=== PATIENT | female | born 1955 | race Caucasian/White ===

== ENCOUNTER 2022-09-04 06:13 | Emergency (ER) | payer OTHER ==
[2022-09-04] MEDS ORDERED: ONDANSETRON 4 MG/2 ML VIAL ONE (07:30)
[2022-09-04] MEDS ORDERED: MORPHINE 4 MG/ML SYR ONE (07:30)
--- NOTE | 2022-09-04 08:09 | RAD REPORT ---
EXAM DESCRIPTION: Shoulder Right 2 View - 09/04/2022 7:53 am CLINICAL HISTORY: PAIN COMPARISON: No comparisons TECHNIQUE: Internal and external rotation views of the right shoulder were obtained. FINDINGS: Anteroinferior shoulder dislocation. Osseous irregularity along the inferior margin of the glenoid suggesting a bony Bankart lesion. Hill-Sachs deformity with a displaced mildly comminuted fr agment of the greater tuberosity. AC joint is normal in appearance. No acute or suspicious findings. IMPRESSION: Anteroinferior shoulder dislocation with bony Bankart lesion, Hill-Sachs deformity, as w ell as displaced mildly comminuted fragments of the greater tuberosity.
[2022-09-04] MEDS ORDERED: KETAMINE HCL 500 MG/5 ML VIAL ONE (09:53)
--- NOTE | 2022-09-04 10:48 | EDPHYS ---
Physician Documentation [facility] Name: Bessie Romero Age: 67 yrs Sex: Female : 1955 Arrival Date: 09/04/2022 Time: 06:17 Bed 7 Private MD: ED Physician Trung Huynh HPI: 09/04 07:09 This 67 yrs old Female presents to ER via Ambulatory with complaints of Fall Injury, rt Shoulder Injury. 07:09 Patient presents to the ED with a trip and fall. She landed on her right shoulder. She rt denies any syncopal events. Patient states that she did not hit her head. She reports pain, aching in nature, nonradiating to her right shoulder. Denies other acute complaints at this time or other injuries. Symptoms are moderate severity, no other aggravating elevating factors.. Historical: - Allergies: 07:00 No Known Allergies; kl - PMHx: 07:00 Migraine; Arthritis; Anxiety; kl - PSHx: 07:00 None; kl - Immunization history:: Adult Immunizations up to date. - Social history:: Smoking status: Patient denies any tobacco usage or history of. ROS: 07:09 Constitutional: Negative for fever, chills, and weight loss, Cardiovascular: Negative rt for chest pain, palpitations, and edema, Respiratory: Negative for shortness of breath, cough, wheezing, and pleuritic chest pain, Abdomen/GI: Negative for abdominal pain, nausea, vomiting, diarrhea, and constipation, Back: Negative for injury and pain, Skin: Negative for injury, rash, and discoloration, Neuro: Negative for headache, weakness, numbness, tingling, and seizure, Psych: Negative for depression, anxiety, suicide ideation, homicidal ideation, and hallucinations. 07:09 MS/extremity: Positive for injury or acute deformity, pain. Exam: 07:09 Constitutional: This is a well developed, well nourished patient who is awake, alert, rt and in no acute distress. Head/Face: Normocephalic, atraumatic. Chest/axilla: Normal chest wall appearance and motion. Nontender with no deformity. No lesions are appreciated. Cardiovascular: Regular rate and rhythm with a normal S1 and S2. No gallops, murmurs, or rubs. Normal PMI, no JVD. No pulse deficits. Respiratory: Lungs have equal breath sounds bilaterally, clear to auscultation and percussion. No rales, rhonchi or wheezes noted. No increased work of breathing, no retractions or nasal flaring. Abdomen/GI: Soft, non-tender, with normal bowel sounds. No distension or tympany. No guarding or rebound. No evidence of tenderness throughout. Neuro: Awake and alert, GCS 15, oriented to person, place, time, and situation. Cranial nerves II-XII grossly intact. Motor strength 5/5 in all extremities. Sensory grossly intact. Cerebellar exam normal. Normal gait. Psych: Awake, alert, with orientation to person, place and time. Behavior, mood, and affect are within normal limits. 07:09 Musculoskeletal/extremity: Deformity with tenderness to the right shoulder, range of motion limited due to pain. Pulses, motor, sensation intact.. Vital Signs: 07:15 BP 156 / 99; Pulse 75; Resp 16; Pulse Ox 97% ; bp Procedures: 10:06 Reduction: of the right shoulder, using traction, manipulation, Immobilized with rt shoulder immobilizer. Patient tolerated well. Post reduction film - reveals normal alignment. Moderate sedation: Pre-procedure assessment: the patient has been NPO 4 hour(s) prior to arrival, ASA physical classification: II - mild/mod systemic disease that does not interfere with daily routines, Airway assessment: able to hyperextend neck, able to maintain airway, can open mouth without difficulty, Mallampati classification of tongue size: I - faucial pillars, soft palate, and uvula can be fully visualized, Monitoring during procedure: site monitor, continuous pulse oximetry, nurse at bedside at all times, Medications employed: Ketamine, 125 mg(s), Post-procedure assessment: the patient is not sedated, Everett sedation score: 1 - patient anxious or agitated or both, Respiratory status: even and unlabored, MDM: 07:03 Patient medically screened. rt 09/04 07:07 Order name: Saline Lock; Complete Time: 07:34 rt 09/04 07:07 Order name: Shoulder Right (2 View) XRAY; Complete Time: 08:10 rt 09/04 10:30 Order name: Shoulder 1 View EDMS Administered Medications: 07:30 Drug: Ondansetron IVP 4 mg Route: IVP; Site: left forearm; bp 10:07 Follow up: Response: No adverse reaction bp 07:30 Drug: morphine IVP or IV 4 mg Route: IVP; Infused Over: 4 mins; Site: left forearm; bp 10:07 Follow up: Response: Pain is decreased bp 10:07 Drug: Ketamine IVP 75 mg {Note: 125MG TOTAL PER MD.} Route: IVP; Site: left forearm; bp 10:07 Follow up: Response: No adverse reaction bp Disposition Summary: 09/04/22 10:47 Discharge Ordered Location: Home rt Problem: new rt Symptoms: have improved rt Condition: Stable rt Diagnosis - Fall on same level, unspecified rt - Other dislocation of right shoulder joint rt - Fracture of greater tuberosity of humerus rt Followup: rt - With: - When: 5 - 6 days - Reason: Discharge Instructions: - Discharge Summary Sheet rt - Shoulder Dislocation rt - Moderate Conscious Sedation, Adult, Care After rt Forms: - Medication Reconciliation Form rt - Thank You Letter rt - Antibiotic Education rt - Prescription Opioid Use rt Prescriptions: - acetaminophen-codeine 300-30 mg Oral tablet - take 2 tablet by ORAL route every 4 to 6 hours as needed for pain; 18 tablet; rt Refills: 0, Product Selection Permitted Signatures: Dispatcher [employer] Elsa Bal RN RN kl Peltier, Brian, RN RN Trung New MD MD rt Corrections: (The following items were deleted from the chart) 10:30 10:00 Shoulder Right 2 View+RAD.RAD.[email or web address] ordered. EDMS EDMS
--- NOTE | 2022-09-04 10:48 | ER ---
Nurse's Notes [facility] Name: Bessie Romero Age: 67 yrs Sex: Female : 1955 Arrival Date: 09/04/2022 Time: 06:17 Bed 7 Private MD: Diagnosis: Fall on same level, unspecified;Other dislocation of right shoulder joint;Fracture of greater tuberosity of humerus Presentation: 09/04 06:57 Chief complaint: Patient states: tripped and fell on right shouldere. Care prior to arrival: None. Mechanism of Injury: Fall. Trauma event details: Injury occurred in the [facility], Injury occurred: at home. Injury occurred: September 04, 2022 Injury occurred at: 05:30. 06:57 Acuity: JESSICA 4 06:57 Method Of Arrival: Ambulatory 07:15 Coronavirus screen: At this time, the client does not indicate any symptoms associated bp with coronavirus-19. Ebola Screen: No symptoms or risks identified at this time. Initial Sepsis Screen: Does the patient meet any 2 criteria? No. Patient's initial sepsis screen is negative. Does the patient have a suspected source of infection? No. Patient's initial sepsis screen is negative. Risk Assessment: Do you want to hurt yourself or someone else? Patient reports no desire to harm self or others. Onset of symptoms was September 04, 2022 at 05:30. Triage Assessment: 07:15 General: Appears uncomfortable, Behavior is appropriate for age. Pain: Complains of bp pain in right arm. EENT: No deficits noted. Neuro: No deficits noted. Cardiovascular: No deficits noted. Respiratory: No deficits noted. GI: No signs and/or symptoms were reported involving the gastrointestinal system. : No signs and/or symptoms were reported regarding the genitourinary system. Derm: No deficits noted. Musculoskeletal: No deficits noted. Historical: - Allergies: 07:00 No Known Allergies; kl - PMHx: 07:00 Migraine; Arthritis; Anxiety; kl - PSHx: 07:00 None; kl - Immunization history:: Adult Immunizations up to date. - Social history:: Smoking status: Patient denies any tobacco usage or history of. Screenin:00 [facility] ED Fall Risk Assessment (Adult) History of falling in the last 3 months, bp including since admission No falls in past 3 months (0 pts). Abuse screen: Denies threats or abuse. Denies injuries from another. Nutritional screening: No deficits noted. Tuberculosis screening: No symptoms or risk factors identified. Assessment: 06:59 General: Appears distressed, uncomfortable, well groomed, well developed, Behavior is kl cooperative. Pain: Complains of pain in posterior aspect of right shoulder Pain currently is 10 out of 10 on a pain scale. Aggravated by increased activity, repositioning. Neuro: No deficits noted. Denies weakness blurred vision headache. EENT: No deficits noted. No signs and/or symptoms were reported regarding the EENT system. Cardiovascular: No deficits noted. Reports. Respiratory: No deficits noted. Reports. GI: No deficits noted. No signs and/or symptoms were reported involving the gastrointestinal system. : No deficits noted. No signs and/or symptoms were reported regarding the genitourinary system. Musculoskeletal: Capillary refill < 3 seconds, Parent/caregiver report the patient having pain in right shouldeer. 08:45 Reassessment: PT CONSENT FOR CONSCIOUS SEDATION WITH CLOSED REDUCTION OF RIGHT SHOULDER bp SIGNED AND WITNESSED. PT PLACED ON 2LNC, CONTINUOUS SP02, NIBP AND TIRE REPAIRMAN. PROCEDURE ON HOLD FOR MEDICATION DELLIVERY. Vital Signs: 07:15 BP 156 / 99; Pulse 75; Resp 16; Pulse Ox 97% ; bp ED Course: 06:17 Patient arrived in ED. ja2 06:59 Triage completed. kl 07:00 Patient has correct armband on for positive identification. Bed in low position. Call bp light in reach. Side rails up X2. 07:03 Trung Huynh MD is Attending Physician. rt 07:14 Mike Marlow, KEANU is Primary Nurse. bp 07:15 Arm band placed on. bp 07:30 Inserted saline lock: 22 gauge in left forearm, using aseptic technique. bp 07:54 Shoulder Right (2 View) XRAY In Process Unspecified. EDMS 10:30 Shoulder 1 View In Process Unspecified. EDMS 10:47 Misael Montemayor MD is Referral Physician. rt Administered Medications: 07:30 Drug: Ondansetron IVP 4 mg Route: IVP; Site: left forearm; bp 10:07 Follow up: Response: No adverse reaction bp 07:30 Drug: morphine IVP or IV 4 mg Route: IVP; Infused Over: 4 mins; Site: left forearm; bp 10:07 Follow up: Response: Pain is decreased bp 10:07 Drug: Ketamine IVP 75 mg {Note: 125MG TOTAL PER MD.} Route: IVP; Site: left forearm; bp 10:07 Follow up: Response: No adverse reaction bp Outcome: 10:47 Discharge ordered by MD. rt Signatures: Dispatcher [employer] Elsa Bal RN RN kl Peltier, Brian, RN RN bp Alexander, Jessica ja2 [place], Ryan, MD MD rt
--- NOTE | 2022-09-04 11:00 | RAD REPORT ---
EXAM DESCRIPTION: Shoulder 1 View - 09/04/2022 10:29 am CLINICAL HISTORY: post reduction COMPARISON: Shoulder Right 2 View dated 09/04/2022 TECHNIQUE: Single AP view of the right shoulder. FINDINGS: The alignment of fracture fragments related to the greater tuberosity. Glenohumeral joint appears to be well aligned on the provided single-view. AC joint mild to moderate degenerative change s. No other acute or suspicious findings. IMPRESSION: Improved alignment following closed reduction as above.
[2022-09-04 12:33] VITALS: BP 153/74; O2SAT 94
== END 2022-09-04 11:20 | disposition home or self-care (01) ==
LOC: ER 06:13
PROC: 0PSC35Z Reposition Right Humeral Head with External Fixation Device, Percutaneous Approach (ICD-10-PCS; principal; 2022-09-04)
DX: S42.251A Displaced fracture of greater tuberosity of right humerus, initial encounter for closed fracture (principal); S43.084A Other dislocation of right shoulder joint, initial encounter
CPT/HCPCS: 73020; 73030; 96375; 96374; 99284; 23665; J2405

== ENCOUNTER 2024-03-28 06:05 | Day surgery (SDC) | payer OTHER ==
[2024-03-24 10:25] LABS: Absolute Basophils 0.1 K/uL (0-0.5); Absolute Eosinophils 0.4 K/uL (0-0.5); Absolute Lymphocytes (CBC) 2.9 K/uL (0.7-4.9); Absolute Monocytes 0.7 K/uL (0.1-1.3); Absolute Neutrophil 7.5 K/uL (1.8-8.0); Basophils % 1.2 % (0-1.3); Eosinophils % 3.1 % (0-4.4); Hematocrit 45.5 % (36.0-45.0); Hemoglobin 15.5 g/dL (12.0-15.0); Lymphocytes % 25.1 % (15.3-44.8); MCH 31.9 pg (27.0-35.0); MCV 93.8 fL (80-100); MPV 6.8 fL (7.6-11.3); Monocytes % 6.2 % (3.3-12.3); Neutrophils % 64.4 % (41.7-73.7); Nucleated Red Blood Cells % 0.1 % (0-0); Platelets 378 thou/uL (152-406); RBC Red Blood Cell Count 4.85 M/uL (3.86-4.86); Red Cell Distribution Width 13.4 % (12.1-15.2)
[2024-03-24 10:35] LABS: PT Prothrombin Time 10.6 SECONDS (9.4-12.5); PTT, Activated Partial Thromb 33.4 SECONDS (24.3-36.9); Protime INR 0.94
[2024-03-24 10:37] LABS: Specific Gravity 1.026 (1.005-1.030); Sqamous Epithelial <5 /HPF (None Seen); Transitional Epithelial <5 /HPF (None Seen); Urine Bacteria <20 /HPF (<20); Urine Bilirubin NEGATIVE (Negative); Urine Blood Negative (Negative); Urine Clarity Extremely Turbid (Clear); Urine Color Yellow (Yellow); Urine Culture Reflex Order NOT NEEDED; Urine Glucose NEGATIVE (Negative); Urine Ketones TRACE (Negative); Urine Microscopic Reflex YN ORDER UMIC; Urine Mucus 2+ /HPF (None Seen); Urine Nitrite NEGATIVE (Negative); Urine Protein TRACE (Negative); Urine Urobilinogen 1+ (Normal); Urine pH 5.5 (5.0-7.0)
[2024-03-24 10:46] LABS: Albumin 4.5 g/dL (3.4-5.0); Anion Gap 8.6 mEq/L (5.0-15.0); Bilirubin Total 0.5 mg/dL (0.2-1.0); Globulin 4.5 g/dL (2.3-3.5); Potassium 4.6 mEq/L (3.5-5.1)
--- NOTE | 2024-03-24 13:02 | RAD REPORT ---
EXAMINATION: TWO VIEW CHEST XR CLINICAL INDICATION: Female, 69 years old. [facility] MA[facility] Pre op pending left hip arthroplasty. Hypertension TECHNIQUE: 2 view radiographs of the chest were performed. COMPARISON: No prior exam. FINDINGS: The lungs are well inflated and clear. No pneumothorax or sizable effusion. The heart is normal in si ze. Mediastinal contours are unremarkable. IMPRESSION: No acute or significant abnormalities.
--- NOTE | 2024-03-24 16:32 | EKG ---
Test Date: 2024-03-24 Test Time: 10:01:38 Tobacco Sieve Operator: ULYSSES MEASUREMENT RESULTS: Intervals: Rate: 85 WA: 212 QRSD: 96 QT: 366 QTc: 435 [place]: P: 80 WA: 212 QRS: 67 T: 81 INTERPRETIVE STATEMENTS: Sinus rhythm with 1st degree AV block Possible Left atrial enlargement Borderline ECG No previous ECG available for comparison Electronically Signed On 03-24-24 16:31:36 CDT by Fransico Herrera
[2024-03-28] MEDS: TRANEXAMIC ACID 1,000 MG/10 ML VIAL IV ONE (06:10)
[2024-03-28] MEDS: CEFAZOLIN SODIUM 2 GM/VIAL ONE (06:17)
[2024-03-28] MEDS: ACETAMINOPHEN 500 MG TAB ONE (06:20)
[2024-03-28] MEDS: GABAPENTIN 100 MG CAP ONE (06:20)
[2024-03-28] MEDS: Oxycodone HCl/Acetaminophen 5/325 MG TAB ONE (06:20)
[2024-03-28] MEDS: CELECOXIB 100 MG CAPSULE ONE (06:20)
[2024-03-28] MEDS: Ringers Lactate 1,000 ML IV ONE ×2 (06:30→08:00)
[2024-03-28] MEDS: BUPIVACAINE 0.75% (PF) 2 ML SP ONE (06:30)
[2024-03-28] MEDS: EPINEPHRINE 1 MG/ML VIAL ONE (06:30)
[2024-03-28] MEDS: MORPHINE SULFATE/PF 1 MG/ML (10 ML AMP) ONE (06:31)
[2024-03-28] MEDS ORDERED: LIDOCAINE 1% MPF 5 ML VIAL ONE ×2 (06:35→08:04)
[2024-03-28] MEDS ORDERED: propofoL 200 MG/20 ML VIAL IV ONE (06:35)
[2024-03-28] MEDS ORDERED: MIDAZOLAM HCL 2 MG/2 ML INJ ONE (06:36)
[2024-03-28] MEDS ORDERED: FENTANYL CITR 100 MCG/2 ML ONE (07:05)
[2024-03-28] MEDS ORDERED: EPHEDRINE SULF 50 MG/ML VIAL ONE (07:19)
[2024-03-28] MEDS ORDERED: Phenylephrine HCl 10 MG/ML 1 ML VIAL ONE ×2 (07:19→08:04)
[2024-03-28] MEDS ORDERED: ONDANSETRON 4 MG/2 ML VIAL ONE (08:03)
--- NOTE | 2024-03-28 08:40 | RAD REPORT ---
Exam:Hip Left 1 View HISTORY: Left hip surgery. FINDINGS: An intraoperative film demonstrates performance of a left hip arthroplasty. Left hip prosthesis in place. No fracture visualized.
[2024-03-28] MEDS ORDERED: ONDANSETRON 4 MG/2 ML VIAL IV PRN (09:13)
[2024-03-28] MEDS ORDERED: DOCUSATE NA 100 MG CAP PO PRN (09:13)
--- NOTE | 2024-03-28 09:13 | P.BOP ---
Preoperative diagnosis: left hip arthritis Postoperative diagnosis: same Primary procedure: left total hip Estimated blood loss: 100 ccs Anesthesia: General Complications: None Transferred to: Recovery Room Condition: Good
[2024-03-28 10:09] VITALS: O2SAT 96
[2024-03-28 10:50] VITALS: BMI 84.4
[2024-03-28] MEDS: HYDROCODONE/APAP 7.5/325 MG TAB PO PRN (11:00)
--- NOTE | 2024-03-28 11:10 | P.CNS ---
Date of Consult: 03/28/24 Reason for Consult: Medical Management Requesting Physician: Shahbaz Lee Primary Care Provider: Diomedes Salcedo Chief Complaint: hip pain History of Present Illness: 69 yo F, PMH: Osteoarthritis, Depression, Anxiety, who is seen post-operatively following elective left total hip repair by Dr. Lee. I have been consulted for medical management. She reports doing well post-operatively. Denies any recent illness. She has been taking her medications regularly without issue. She sees Dr. Diomedes Salcedo regularly. Currently denies any nausea/vomiting, no headache, no abdominal pain. Leg/hip pain is tolerable. Allergies iodine Allergy (Verified 03/28/24 06:47) Hives codeine Adverse Reaction (Verified 03/28/24 06:47) Nausea/Vomiting Home Medications: Albuterol Sulfate [Proair Hfa] 2 puff IH Q6HP PRN 03/24/24 Buspirone HCl 30 mg PO BID 03/24/24 Calcipotriene 1 kamran TP BIDP PRN 03/24/24 Clobetasol Propionate 1 kamran TP SEECOM 03/24/24 Duloxetine HCl [Cymbalta] 60 mg PO DAILY 03/24/24 Gabapentin [Neurontin] 100 mg PO TID 03/24/24 Meloxicam [Mobic] 7.5 mg PO DAILY 03/24/24 Tizanidine [Zanaflex] 4 mg PO TID 03/24/24 Trazodone HCl 2 tab PO BEDTIME 03/24/24 - Past Medical/Surgical History Diabetic: Yes -: "borderline DM" diet controlled -: depression -: anxiety -: arthritis -: cholecystectomy -: hysterectomy -: ovaries removed -: back surgery -: L hip 03/28/24 - Family History Mother Medical History: Cancer, Other (see notes) Notes: melanoma Father Medical History: Lung disease, Cancer, Other (see notes) Notes: lung cancer grandfather Medical History: Heart disease, Hypertension - Social History Smoking Status: Unknown if ever smoked Alcohol use: No CD- Drugs: No Caffeine use: Yes Place of Residence: Home Review of Systems 10-point ROS is otherwise unremarkable Physical Examination Temp Pulse Resp BP Pulse Ox 97.6 F 94 H 18 103/56 L 93 03/28/24 10:03 03/28/24 10:03 03/28/24 11:00 03/28/24 10:03 03/28/24 11:00 General: Alert, In no apparent distress, Oriented x3 HEENT: EOMI, Sclerae nonicteric Respiratory: Clear to auscultation bilaterally, Normal air movement Cardiovascular: No edema, Regular rate/rhythm, No murmurs Gastrointestinal: Soft and benign, Non-distended, No tenderness Musculoskeletal: No contractures, Tenderness (over left hip, mild), Other Integumentary: Other (surgical dressing c/d/i) Neurological: Normal speech, Normal affect Urinary: Renee catheter (inserted in OR) Physician Review Additional Text: Problem List: Osteoarthritis s/p elective left total hip arthroplasty (03/28) Depression/anxiety Insomnia underwent left total hip arthroplasty with Dr. Lee 03/28 will need to follow up with ortho in 1-2 weeks for continued management weight-bearing status per ortho recheck H&H post surgery PT consult pain control, colace PRN zofran regular diet renee in place; placed 03/28 in OR Pressure offloading measures. frequent turning. Wedge in place between legs tobacco cessation advised confirm home meds, restart as appropriate - gabapentin, trazodone, duloxetine Code: Full Dispo: home with HH; per ortho ss/cm consulted for assistance Time Spent Managing Pts care (In Minutes): 55
[2024-03-28 11:29] LABS: Hemoglobin 12.9 g/dL (12.0-15.0)
[2024-03-28] MEDS: CEFAZOLIN 1 GM in NA CHLORIDE 0.9% 50 ML IVPB SCH (17:01)
[2024-03-28 18:05] LABS: Hematocrit 35.8 % (36.0-45.0); Hemoglobin 11.9 g/dL (12.0-15.0)
--- NOTE | 2024-03-28 19:30 | OP ---
Date of Procedure: 03/28/2024 Surgeon: Shahbaz Lee MD Preoperative Diagnosis: Left severe arthritis of the hip. Postoperative Diagnosis: Left severe arthritis of the hip. Procedure: Left total hip arthroplasty using the Pari system. Estimated Blood Loss: 100 cc. Complications: There were no complications. Indications For Operation: Ms. Romero is a 69-year-old female who has had debilitating left hip pain . She also has arthritic changes on the right side; however, left side appears to be most problemati c for her. X-rays revealed significant erosion and slight protrusion with surrounding osteophyte for mation. Risks, benefits, and alternatives to total hip arthroplasty had been discussed with her. Apoorva deluca states she understands things as presented and wishes to proceed. A pertinent finding should be no annmarie, her sciatic nerve is superficial to the external rotators, which was important in case of possib le need for revision and knowing the anatomic location of the sciatic nerve. Description Of Procedure: The patient was taken to the operating room. A spinal anesthesia was obta ined by the Anesthesia staff. Following this, she was then rolled right side down with axillary roll and all of her bony prominences are checked. She was appropriately positioned using hip positioners . Left lower extremity was then prepped and draped in usual sterile fashion for arthroplasty. Follo wing this, a standard posterior lateral incision was taken down carefully through skin and soft tissu es. Meticulous hemostasis being maintained using Bovie electrocautery. This leads down to the fasci a. A small stab wound was made in the fascia and gluteal tendon was palpated to ensure correct place ment of the incision. Incision was then brought gently upward until near the tip of the greater troc hanter where the gluteus karyn muscles were encountered. These were then spread easily using finge r pressure. The sciatic nerve was palpated and found to be superficial to the external rotators. Th is was well noted and was protected throughout the remainder of the case. Following this, the Charnl ey was placed and the external rotators and capsule were then taken down carefully with care being ta amber to protect the sciatic nerve and tagged for later repair. After this, the hip was then dislocate d and a standard neck cut was made. The head was removed and sized using ring gauges. After this, t he acetabulum was inspected. It does have a fairly generous rim of osteophytes and majority of which are removed and also the removal of any soft tissue and labrum to allow for good visualization. Aft er this, the acetabulum was then reamed to a size 49, which was a little tight, but reaming to a 47 a nd placing a 48 felt to be too small and did not give enough bleeding bone or bone coverage. After t his, the cup was then placed in standard fashion being a size 50. It did appear to be a little proud , however, it was retained for now as attention was turned to the femur. binding cutter synthetic cloth was used to late ralize followed by the canal finding reamer. It was then sequentially broached to the size 3. The s ize 3 is quite tight, actually being difficult to place completely flush medially. Decision was made to move forward with standard x-rays that we always do. X-ray demonstrates that the cup is a little bit proud, not fully seated. The stem itself appeared to be a little small. However, it did appear to be in good alignment without varus and decision was made to retain this size stem as visibly it a ppeared to be very tight and trying to place a 4 could possibly lead to a femur fracture or other pro blems. The cup is adjusted using the ball impacting reamer. After the broach had been removed, anot her x-ray was taken which demonstrated now that it is now more fully seated. It is definitely very s table and no sign of problems with the tightness of the fit. After this, the liner was placed withou t difficulty followed by placement of the final stem. It was then trialed. Given the size 50, the m ost we can go was a standard ball. This was relocated and she comes to full extension and slightly p ast full extension. She was stable to full flexion, adduction, and internal rotation to at least 45 degrees. Decision was made to go with a standard. A standard ball was then placed and tested. It w as stable in the same parameters. The wound was copiously irrigated and the external rotators and ca psule were then repaired back to the trochanter and the proximal femur. The wound was again irrigate d. The skin was closed using Vicryl sutures followed by tameka. The patient was then placed in Aqu acel dressing, awakened, and taken to the recovery room in good condition. There were no complications. SE/MODL Voice ID: [id number] Report ID: [id number]
[2024-03-28] MEDS: TRAZODONE 50 MG TABLET PO SCH (20:16)
[2024-03-28] MEDS: GABAPENTIN 100 MG CAP PO SCH (20:17)
[2024-03-28] MEDS: TRAZODONE 150 MG TAB PO SCH (20:22)
[2024-03-28] MEDS: BUSPIRONE HCL 15 MG TABLET PO SCH (20:22)
[2024-03-28] MEDS ORDERED: HOME MED 1 EA UNK (Trazodone Hcl [Trazodone Hcl] 100 MG Tablet) PO SCH (21:00)
[2024-03-28] MEDS: MORPHINE 2 MG/ML SYR IV ONE (22:47)
[2024-03-29 07:02] LABS: Hematocrit 35.4 % (36.0-45.0); Hemoglobin 11.8 g/dL (12.0-15.0)
[2024-03-29] MEDS: ENOXAPARIN 40 MG/0.4 ML SQ SCH (08:08)
[2024-03-29] MEDS: DULOXETINE 30 MG CAP PO SCH (08:09)
[2024-03-29] MEDS ORDERED: HOME MED 1 EA UNK (Duloxetine Hcl [Cymbalta] 60 MG Capsule.Dr) PO SCH (09:00)
--- NOTE | 2024-03-29 09:44 | P.PN ---
Date of Service: 03/29/24 Subjective: Doing well post-operatively denies any new / worsening problems worked with PT today. Ambulated ~160 ft with a walker and SBA hip feels sore ROS: 10 point ROS as noted above, otherwise negative Physical Exam: GEN: Alert, oriented, NAD HEENT: Normal conjunctiva, sclera anicteric, CV: Regular rate and rhythm, no edema Pulm: Nonlabored respirations on room air, clear bilaterally ABD: soft, nontender, nondistended MSK: left hip tenderness, dressing in place c/d/i Neuro: Normal speech, normal affect Problem List: Osteoarthritis s/p elective left total hip arthroplasty (03/28) Depression/anxiety Insomnia underwent left total hip arthroplasty with Dr. Lee 03/28 will need to follow up with ortho in 1-2 weeks for continued management weight-bearing status per ortho continue PT pain control, colace PRN zofran Pressure offloading measures. frequent turning. Wedge in place between legs tobacco cessation advised resume home gabapentin, trazodone, duloxetine Cherise dc'd 03/29 VTE: lovenox Code: Full Dispo: home with HH; per ortho anticipate dc later today after able to void freely without issues Time Spent Managing Pts Care (In Minutes): 39
[2024-03-29 11:58] VITALS: BP 116/51; TEMP 97.9
== END 2024-03-29 13:02 | disposition home health service (06) ==
LOC: OR 06:05 → 2ND 09:13 → OR 09:13
PROVIDERS: ATTEND Orthopaedic Surgery
PROC: 0SRB0JA Replacement of Left Hip Joint with Synthetic Substitute, Uncemented, Open Approach (ICD-10-PCS; principal; 2024-03-28 07:00)
DX: M16.12 Unilateral primary osteoarthritis, left hip (principal); F32.A Depression, unspecified; Z88.5 Allergy status to narcotic agent; Z91.09 Other allergy status, other than to drugs and biological substances; G47.00 Insomnia, unspecified
CPT/HCPCS: 93005; 85025; 81001; 36415 ×2; 85610; 88305; 88311; 85730; 85018 ×2; 85014 ×2; 80053; 71046; 73501; 97110; 97116; 97161; 97530; 27130; C1776; J2704; J2001 ×2; J2371 ×2; J2250; J3010; J2270; J0171; J2405; J7120 ×2; J0690; 88304; J1650

== ENCOUNTER 2024-08-29 06:04 | Day surgery (SDC) | payer OTHER ==
[2024-08-24 09:52] LABS: Absolute Basophils 0.1 K/uL (0-0.5); Absolute Eosinophils 0.6 K/uL (0-0.5); Absolute Lymphocytes (CBC) 2.6 K/uL (0.7-4.9); Absolute Monocytes 0.5 K/uL (0.1-1.3); Absolute Neutrophil 4.3 K/uL (1.8-8.0); Basophils % 1.7 % (0-1.3); Eosinophils % 7.8 % (0-4.4); Hematocrit 43.1 % (36.0-45.0); Hemoglobin 14.6 g/dL (12.0-15.0); Lymphocytes % 31.7 % (15.3-44.8); MCH 31.3 pg (27.0-35.0); MCV 92.1 fL (80-100); MPV 6.9 fL (7.6-11.3); Monocytes % 5.7 % (3.3-12.3); Neutrophils % 53.1 % (41.7-73.7); Nucleated Red Blood Cells % 0.3 % (0-0); Platelets 346 thou/uL (152-406); RBC Red Blood Cell Count 4.67 M/uL (3.86-4.86); Red Cell Distribution Width 12.9 % (12.1-15.2)
[2024-08-24 10:01] LABS: PT Prothrombin Time 10.4 SECONDS (10.0-13.0); PTT, Activated Partial Thromb 30.7 SECONDS (24.3-36.9); Protime INR 0.91
[2024-08-24 10:03] LABS: Specific Gravity 1.013 (1.005-1.030); Urine Bilirubin NEGATIVE (Negative); Urine Blood Negative (Negative); Urine Clarity Clear (Clear); Urine Color Light-Yellow (Yellow); Urine Glucose NEGATIVE (Negative); Urine Ketones NEGATIVE (Negative); Urine Microscopic Reflex YN NO UMIC; Urine Nitrite NEGATIVE (Negative); Urine Protein NEGATIVE (Negative); Urine Urobilinogen Normal (Normal)
[2024-08-24 10:13] LABS: Albumin 4.2 g/dL (3.4-5.0); Anion Gap 6.4 mEq/L (5.0-15.0); Bilirubin Total 0.5 mg/dL (0.2-1.0); Globulin 4.3 g/dL (2.3-3.5); Potassium 4.4 mEq/L (3.5-5.1); Protein, Total 8.5 g/dL (6.4-8.2)
[2024-08-29] MEDS: Ringers Lactate 1,000 ML IV ONE ×3 (06:19→10:00)
[2024-08-29] MEDS: MAGNESIUM SULFATE 1 gm IVPB 1 GM/100 ML BAG IV ONE (06:23)
[2024-08-29] MEDS ORDERED: FENTANYL CITR 100 MCG/2 ML ONE (06:23)
[2024-08-29] MEDS: DEXMEDETOMIDINE HCL 200 MCG/2 ML VIAL ONE (06:23)
[2024-08-29] MEDS: MORPHINE SULFATE/PF 1 MG/ML (10 ML AMP) ONE (06:23)
[2024-08-29] MEDS ORDERED: EPINEPHRINE 1 MG/ML VIAL ONE (06:23)
[2024-08-29] MEDS ORDERED: KETAMINE HCL IN 0.9 % NACL 50 MG/5 ML SYRINGE IV ONE (06:23)
[2024-08-29] MEDS ORDERED: LIDOCAINE 2% MPF 5 ML VIAL ONE ×2 (06:23)
[2024-08-29] MEDS ORDERED: propofoL 200 MG/20 ML VIAL IV ONE ×2 (06:23→08:06)
[2024-08-29] MEDS ORDERED: MIDAZOLAM HCL 2 MG/2 ML INJ ONE (06:23)
[2024-08-29] MEDS ORDERED: ONDANSETRON 4 MG/2 ML VIAL ONE (06:34)
[2024-08-29] MEDS: GABAPENTIN 100 MG CAP ONE (06:40)
[2024-08-29] MEDS: CELECOXIB 100 MG CAPSULE ONE ×2 (06:40)
[2024-08-29] MEDS: Oxycodone HCl/Acetaminophen 5/325 MG TAB ONE ×2 (06:40)
[2024-08-29] MEDS: TRANEXAMIC ACID 1,000 MG/10 ML VIAL IV ONE (06:46)
[2024-08-29] MEDS: CEFAZOLIN SODIUM 2 GM/VIAL ONE (07:50)
[2024-08-29] MEDS ORDERED: Phenylephrine HCl 10 MG/ML 1 ML VIAL ONE (08:14)
[2024-08-29] MEDS ORDERED: NS 0.9% VIAL 10 ML ONE ×2 (08:14→08:35)
[2024-08-29] MEDS ORDERED: NS 0.9% VIAL 20 ML ONE (08:22)
[2024-08-29] MEDS: NA CHLORIDE 0.9% 100 ML ONE ×2 (08:48→09:28)
[2024-08-29] MEDS ORDERED: ONDANSETRON 4 MG/2 ML VIAL IV PRN (09:54)
[2024-08-29] MEDS ORDERED: DOCUSATE NA 100 MG CAP PO PRN (09:54)
--- NOTE | 2024-08-29 09:54 | P.BOP ---
Preoperative diagnosis: right hip arthritis Postoperative diagnosis: same Primary procedure: right total hip arthoplasty Estimated blood loss: 150 ccs Anesthesia: General Transferred to: Recovery Room Condition: Good
--- NOTE | 2024-08-29 10:22 | RAD REPORT ---
EXAMINATION: XR Hip Right 1 View CLINICAL INDICATION: Female, 69 years old. [facility] MA[facility] TOTAL HIP TECHNIQUE: 1 view radiograph of the right hip were obtained. COMPARISON: No prior exam. FINDINGS: Components of right hip arthroplasty in place, with no femoral head component. Surgical inc ision present laterally. Other metallic surgical tools present near the midline. IMPRESSION: Intraoperative radiograph during right hip arthroplasty.
--- NOTE | 2024-08-29 10:39 | OP ---
Date of Procedure: 08/29/2024 Surgeon: Shahbaz Lee MD Preoperative Diagnosis: Right hip arthritis. Postoperative Diagnosis: Right hip arthritis. Procedure: Right total hip arthroplasty using the Liguori System. Estimated Blood Loss: 100 cc. Complications: There were no complications. Specimens: No pathology specimens sent other than the femoral head. Indications For Operation: Ms. Romero is a 69-year-old female who suffered from bilateral hip arthri tis for quite some time. She has had a left total hip arthroplasty done by me and it did extremely w ell. She comes to my office with debilitating pain, limitations of her ADLs on the right side, as we ll as limitation of motion. X-rays demonstrate severe degenerative changes of the hip on the right. Risks, benefits, and alternatives to this procedure were again discussed further. She states she un derstands things as presented and wishes to proceed with total hip arthroplasty. Description Of Procedure: The patient was taken to the operating room. Spinal anesthesia was achiev ed by the anesthesia staff. Following this, general anesthesia was obtained by the anesthesia staff and Luong was placed. She was then rolled left side down with an axillary roll and properly position ed using hip positioners. After this, right lower extremity was then prepped and draped in usual fas hion for total hip arthroplasty. A standard posterolateral incision was taken down carefully through skin and soft tissues. Meticulous hemostasis being maintained using Bovie electrocautery and this l hemal to the fascia. A small stab wound was made in the fascia and gluteal tendon was palpated to ens ure we were in correct position. After this, the fascial incision was then taken up until near the t ip of the greater trochanter, where the fibers of gluteus karyn were encountered and these were the n spread using finger pressure. The sciatic nerve was palpated and protected as the Charnley was piotr lisbet, and the external rotator capsule was then removed from the proximal femur and tagged for later r epair. Following this, hip was dislocated and a little bit longer than standard neck cut was perform ed and head was removed. It was then sized using ring gauges. It should be noted that we do have he r contralateral side, which was doing well in all sizes. After this, any soft tissues within the nayeli tabulum were removed. The labrum was also carefully excised. It was then sequentially reamed up to a size 49. Her previous cup was size 50. It appeared that this was appropriate and the cup was then placed and appeared to be very solid. Attention was then turned to the femur, where the paperboard boxes estimator was used to lateralize, followed by canal finding reamer. It was then broached up to a size 3, which was the same size as the contralateral side and appears to be quite stable. At this time, an x-ray was taken, which demonstrates the acetabulum could be a little deeper and the stem could perhaps be u psized to 1, however did feel extremely good on placement and is the same as the contralateral side. Decision was made not to try to force in a 4. After this, the cup was then hit a few times with the ball impactor and the liner was placed. Attention was turned back to the femur and the final stem w as placed. It was then trialed with a standard and appeared to relocate easily. She is a little cristo rose on her left side and with full flexion and internal rotation to approximately 30 degrees, it begi ns to shift. Therefore, decision was made to trial with a +4. +4 was placed. It appeared to be mor e stable, coming up to full adduction and flexion with internal rotation to at least 45 degrees. Thi s was selected as the final ball. Final ball was then placed. The wound was irrigated. The externa l rotators and capsule were then repaired back to the greater trochanter via bone tunnels. After thi s was again irrigated, the fascia was closed in a watertight fashion using heavy Vicryl sutures, foll owed by irrigation and closure of the skin with Vicryl, followed by tameka. The patient was then pl aced in Aquacel dressing, awakened, and taken to recovery room in good condition. No complications. SE/MODL Voice ID: [id number] Report ID: [id number]
[2024-08-29 11:20] LABS: Hematocrit 34.5 % (36.0-45.0); Hemoglobin 11.7 g/dL (12.0-15.0)
[2024-08-29] MEDS ORDERED: DIPHENHYDRAMINE 50 MG/ML VIAL IV PRN (11:24)
[2024-08-29] MEDS ORDERED: METOCLOPRAMIDE 10 MG/2mL INJ IV PRN (11:25)
--- NOTE | 2024-08-29 11:26 | P.CNS ---
Date of Consult: 08/29/24 Reason for Consult: med management, post-op hip Requesting Physician: Shahbaz Lee Primary Care Provider: Diomedes Salcedo History of Present Illness: 69 yo F, PMH: Osteoarthritis, Depression, Anxiety, who is seen post-operatively following elective right total hip repair by Dr. Lee. I have been consulted for medical management. She reports doing well post-operatively. Denies any recent illness. She has been taking her medications regularly without issue. No changes in medications since she was last here in 03/2024 after left total hip repair. She sees Dr. Diomedes Salcedo regularly. Currently denies any nausea/vomiting, no headache, no abdominal pain. Leg/hip pain is tolerable. Allergies iodine Allergy (Verified 08/29/24 07:06) Hives codeine Adverse Reaction (Verified 08/29/24 07:06) Nausea/Vomiting Home Medications: Albuterol Sulfate [Proair Hfa] 2 puff IH Q6HP PRN 03/24/24 Buspirone HCl 30 mg PO BID 03/24/24 Duloxetine HCl [Cymbalta] 60 mg PO DAILY 03/24/24 Gabapentin [Neurontin] 100 mg PO TID 03/24/24 Tizanidine [Zanaflex] 4 mg PO TID 03/24/24 Trazodone HCl 2 tab PO BEDTIME 03/24/24 - Past Medical/Surgical History Diabetic: Yes -: "borderline DM" diet controlled -: depression -: anxiety -: arthritis -: cholecystectomy -: hysterectomy -: ovaries removed -: back surgery -: L hip 03/28/24 - Family History Mother Medical History: Cancer, Other (see notes) Notes: melanoma Father Medical History: Lung disease, Cancer, Other (see notes) Notes: lung cancer grandfather Medical History: Heart disease, Hypertension - Social History Smoking Status: Unknown if ever smoked Alcohol use: No CD- Drugs: No Caffeine use: Yes Place of Residence: Home Review of Systems 10-point ROS is otherwise unremarkable Physical Examination Temp Pulse Resp BP Pulse Ox 97.5 F 91 H 16 124/34 L 98 08/29/24 10:52 08/29/24 11:02 08/29/24 11:02 08/29/24 11:02 08/29/24 06:40 General: Alert, In no apparent distress, Oriented x3 HEENT: EOMI, Sclerae nonicteric Neck: Supple, No LAD Respiratory: Clear to auscultation bilaterally, Normal air movement Cardiovascular: No edema, Regular rate/rhythm Gastrointestinal: Soft and benign, Non-distended, No tenderness Musculoskeletal: Other (R hip with tenderness) Integumentary: Other (surgical dressing c/d/i) Neurological: Normal speech, Normal affect Laboratory Data (last 24 hrs) 08/29/24 11:12 Hgb 11.7 L Hct 34.5 L Physician Review Additional Text: Problem List: Osteoarthritis s/p elective right total hip arthroplasty (08/29) h/o elective left total hip (03/2024) Depression/anxiety Insomnia seems to be doing well post-op at this time pain control PT consulted weight-bearing status per ortho will need to follow up with ortho in 1-2 weeks for continued management pain control, colace PRN zofran regular diet renee in place - from surgery, likely dc in next 24hrs Pressure offloading measures. frequent turning confirm home meds, restart as appropriate - gabapentin, trazodone, duloxetine Dispo: home with HH; per ortho ss/cm consulted for assistance Time Spent Managing Pts care (In Minutes): 55
[2024-08-29] MEDS ORDERED: NALOXONE 0.4 MG/ML VIAL IV PRN (11:27)
[2024-08-29] MEDS: CEFAZOLIN 1 GM in NA CHLORIDE 0.9% 50 ML IVPB SCH (11:53)
[2024-08-29 12:36] VITALS: BMI 21.8
[2024-08-29] MEDS: FLU (Fluarix Triv) TS24-25(6MOS UP)/PF 45 MCG/0.5 ML Syringe IM ONE (13:15)
[2024-08-29] MEDS: PNEUMOCOCCAL VACCINE 0.5 ML IMVAC ONE (14:00)
[2024-08-29] MEDS: HYDROCODONE/APAP 7.5/325 MG TAB PO PRN (14:12)
[2024-08-29 17:42] LABS: Hematocrit 32.5 % (36.0-45.0); Hemoglobin 11.1 g/dL (12.0-15.0)
[2024-08-29] MEDS: TRAZODONE 50 MG TABLET PO SCH (20:06)
[2024-08-29] MEDS: BUSPIRONE HCL 15 MG TABLET PO SCH (20:06)
[2024-08-29] MEDS: TRAZODONE 150 MG TAB PO SCH (20:06)
[2024-08-29] MEDS: GABAPENTIN 100 MG CAP PO SCH (20:07)
[2024-08-29] MEDS ORDERED: HOME MED 1 EA UNK (Trazodone Hcl [Trazodone Hcl] 100 MG Tablet) PO SCH (21:00)
[2024-08-30 06:02] LABS: Hematocrit 31.4 % (36.0-45.0); Hemoglobin 10.7 g/dL (12.0-15.0)
--- NOTE | 2024-08-30 08:50 | P.PN ---
Date of Service: 08/30/24 Subjective: doing well post-operatively urinating without issues after renee removal no acute events overnight afebrile ROS: 10 point ROS as noted above, otherwise negative Physical Exam: GEN: Alert, oriented, NAD CV: Regular rate and rhythm, no edema Pulm: Nonlabored respirations on RA, clear bilaterally ABD: soft, nontender, nondistended MSK: R hip with tenderness, surgical dressing c/d/i Neuro: Normal speech, normal affect Problem List: Osteoarthritis s/p elective right total hip arthroplasty (08/29) h/o elective left total hip (03/2024) Depression/anxiety Insomnia seems to be doing well post-op at this time pain control, colace continue PT weight-bearing status per ortho will need to follow up with ortho in 1-2 weeks for continued management Renee dc'd. Patient voiding without issues after renee removal. Pressure offloading measures. frequent turning continue home gabapentin, trazodone, duloxetine off O2, clear from medical standpoint if remains off O2 this morning Dispo: per ortho - anticipate home with home health today Time Spent Managing Pts Care (In Minutes): 35
[2024-08-30] MEDS ORDERED: HOME MED 1 EA UNK (Duloxetine Hcl [Cymbalta] 60 MG Capsule.Dr) PO SCH (09:00)
[2024-08-30] MEDS ORDERED: FLU (Fluarix Triv) TS24-25(6MOS UP)/PF 45 MCG/0.5 ML Syringe IM ONE (09:00)
[2024-08-30 09:05] VITALS: O2SAT 96
[2024-08-30 09:11] VITALS: BP 109/64; TEMP 98.4
[2024-08-30] MEDS: DULOXETINE 30 MG CAP PO SCH (09:58)
[2024-08-30] MEDS: ENOXAPARIN 40 MG/0.4 ML SQ SCH (09:59)
[2024-08-30] MEDS: PNEUMOCOCCAL VACCINE 0.5 ML IMVAC ONE (09:59)
[2024-08-30] MEDS: FLU (Fluarix Triv) TS24-25(6MOS UP)/PF 45 MCG/0.5 ML Syringe IM ONE (10:00)
== END 2024-08-30 12:26 | disposition home health service (06) ==
LOC: OR 06:04 → 2ND 09:54 → OR 08-30 12:26
PROVIDERS: ATTEND Orthopaedic Surgery
PROC: 0SR90JA Replacement of Right Hip Joint with Synthetic Substitute, Uncemented, Open Approach (ICD-10-PCS; principal; 2024-08-29 07:00)
DX: M16.11 Unilateral primary osteoarthritis, right hip (principal)
CPT/HCPCS: 85025; 36415 ×2; 85610; 88305; 88311; 85730; 85018 ×2; 85014 ×2; 81003; 80053; 73501; 97116; 97161; 97530; 27130; J3475; A4216 ×3; J2704 ×2; J2371; J2003 ×2; J2250; J3010; J0171; J2405; J7120 ×3; J0690 ×3; A4314; 88304; 90471; 90656; 90732; J1650